=== PATIENT | female | born 1995 | race Caucasian/White ===

== ENCOUNTER 2020-09-16 18:24 | Emergency (ER) | payer BC, OTHER ==
[2020-09-16 18:55] VITALS: BP 140/83; PULSE 110
--- NOTE | 2020-09-16 20:31 | EDM.PDOC ---
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 Tate is a very pleasant 25-year-old woman who now presents to the ED with vaginal bleeding in the setting of an early . She states that her LMP was 08/05/2020, with 2 positive tests about 2 weeks ago, giving her a gestational age of 6 weeks 0 days today and an ISREAL of 12 05/12/2021. This is her first . She states that she has experienced pelvic cramps and vaginal bleeding on and off for the past 9 days, but that it got worse this past , 09/14/2020. She saw her [facility] Waste Handler at [facility] yesterday, 09/15/2020. She states that blood work was drawn, but that no other tests were performed. She states that she was told that her blood type is B- positive, and that her quantitative hCG was around 8000. She was discharged home with no prescriptions or even the recommendation to take vitamins. She is scheduled to undergo a pelvic ultrasound on 09/25/2020. He now presents the ED stating that she had a gush of bright red blood around 18:00 this evening. No tissue noticed. No associated pelvic cramps or pain. She denies having any recent urinary symptoms. Here in the ED, the patient is initially found to be modestly tachycardic at 110 bpm, otherwise, she is hemodynamically stable, afebrile, saturating 100% on room air. Other than the pelvic cramps and vaginal bleeding, the patient eats that she has had slight nausea, but no recent vomiting. Otherwise, she denies having a recent fever, chills, sore throat, ear pain, nasal or sinus congestion, cough, dyspnea, chest pain, palpitations, vomiting, constipation, diarrhea, abdominal pain, urinary symptoms, recent weight gain or weight loss, recent bloody bowel movements or black bowel movements, recent joint aches, headaches, or rashes. The patient's PCP and Hazard Waste Handler are in [place]. - Related Data Allergies Allergy/AdvReac Type Severity Reaction Status Date / Time No Known Allergies Allergy Verified 09/16/20 18:54 Home Meds: Home Meds Acetaminophen [Tylenol Extra Strength] 1,000 mg PO ASDIRECTED PRN 04/11/14 [History] Ondansetron [Zofran] 4 mg BUCCAL Q6H PRN #5 tab 04/26/15 [Rx] Past Medical History - Past Surgical History HEENT Surgical History: Reports: Oral Surgery (dental extractions) Social & Family History - Tobacco Use Tobacco Use Status *Q: Never Tobacco User Second Hand Smoke Exposure: No - Caffeine Use Caffeine Use: Reports: None - Alcohol Use Alcohol Use History: Yes Alcohol Use Frequency: Socially - Recreational Drug Use Recreational Drug Use: No - Living Situation & Occupation Living situation: Reports: Single, with Significant Other (Boyfriend) Occupation: Employed ([employer]) ED ROS GENERAL - Review of Systems Review Of Systems: Comprehensive ROS is negative, except as noted in HPI. ED EXAM - Physical Exam Exam: See Below Exam Limited By: No Limitations General Appearance: Alert, WD/WN, No Apparent Distress Eye Exam: Bilateral Eye: EOMI, Normal Inspection Ears: Normal External Exam, Hearing Grossly Normal Nose: Normal Inspection Throat/Mouth: Normal Inspection, Normal Voice, No Airway Compromise, Other (Surgical mask on) Head: Atraumatic, Normocephalic Neck: Normal Inspection, Full Range of Motion Respiratory/Chest: No Respiratory Distress, Lungs Clear, Normal Breath Sounds, No Accessory Muscle Use Cardiovascular: Normal Peripheral Pulses, Regular Rate, Rhythm, No Edema, No Gallop, No JVD, No Murmur, No Rub GI/Abdominal Exam: Normal Bowel Sounds, Soft, Non-Tender (including suprapubically), No Organomegaly, No Distention, No Abnormal Bruit, No Mass (Female) Exam: Normal External Exam, Other (Nulliparous os closed. Old- appearing dark red/brown blood by the cervix + a smattering withihn the vagina. No active bleeding. No tissue seen.). No: Products of Conception, Tissue Present in Cervix/Vagina Back Exam: Normal Inspection, Full Range of Motion. No: CVA Tenderness (L), CVA Tenderness (R) Extremities: Normal Inspection, Normal Range of Motion, No Pedal Edema, Normal Capillary Refill Neurological: Alert, Oriented, Normal Cognition, No Motor/Sensory Deficits Psychiatric: Normal Affect Skin Exam: Warm, Dry, Intact, Normal Color, No Rash Course - Vital Signs Last Recorded V/S: Last Vital Signs Temp 36.7 C 09/16/20 18:51 Pulse 110 H 09/16/20 18:51 Resp 20 09/16/20 18:51 BP 140/83 09/16/20 18:51 Pulse Ox 100 09/16/20 18:51 Orthostatic Blood Pressure [ 120/78 Standing] Orthostatic Blood Pressure [ 124/76 Supine] - Orders/Labs/Meds Orders: Active Orders 24 hr Category Date Time Status Orthostatic Vital Signs [RC] STAT Care 09/16/20 20:27 Active OB Transvaginal [US] Stat Exams 09/16/20 20:27 Taken Labs: Laboratory Tests 09/16/20 Range/Units 20:53 WBC 7.49 (3.98-10.04) K/mm3 RBC 4.21 (3.98-5.22) M/mm3 Hgb 12.3 D (11.2-15.7) gm/dl Hct 38.2 (34.1-44.9) % MCV 90.7 (79.4-94.8) fl MCH 29.2 (25.6-32.2) pg MCHC 32.2 (32.2-35.5) g/dl RDW Std Deviation 41.9 (36.4-46.3) fL Plt Count 292 (182-369) K/mm3 MPV 8.9 L (9.4-12.3) fl Neutrophils % (Manual) 64 H (40-60) % Band Neutrophils % 0 (0-10) % Lymphocytes % (Manual) 27 (20-40) % Atypical Lymphs % 0 % Monocytes % (Manual) 6 (2-10) % Eosinophils % (Manual) 3 (0.7-5.8) % Basophils % (Manual) 0 L (0.1-1.2) Platelet Estimate Adequate RBC Morph Comment Normal - Re-Assessments/Exams Free Text/Narrative Re-Assessment/Exam: 09/16/20 20:28 As above, the patient's LMP was 08/05/2020, with 2 positive home test about 2 weeks ago, giving her a gestational age of 6 weeks 0 days today by dates, with an ISREAL of 05/12/2021. She has been experiencing both vaginal bleeding and cramping on and off for the past 9 days, worse night, therefore she saw her OB in [place] yesterday where blood work, only, was performed. She states that her blood type is B-positive, and that her quantitative hCG was around 8000. She is scheduled for an ultrasound on 09/25/2020. She now presents the ED due to a gush of bright red blood this evening, without cramping. The patient's physical exam is grossly benign, including that of her pelvic exam, or her nulliparous os is closed. There is some old-appearing dark red/brown blood by the cervix and a smattering within the vagina, with no other abnormalities. Because the patient had a quantitative hCG and a blood type yesterday, there is no need to repeat those today, however, I have ordered a CBC and orthostatics to make sure that she has not lost a significant amount of blood. I have also ordered a transvaginal ultrasound to evaluate for an ectopic . 09/16/20 20:58 The patient is not orthostatic. 09/16/20 21:48 The patient's CBC is unremarkable. 09/16/20 22:34 Transvaginal ultrasound is read by Breana as: 1. There is no evidence of an ectopic . 2. Single early intrauterine is identified with ultrasound dates at approximately 5 weeks 6 days. No heart rate is noted on this examination, likely related to very early (heart rate is usually detected by 6 weeks). There is a question of a tiny 0.6 cm subchorionic hemorrhage which can be followed on subsequent examinations. Otherwise, no other acute abnormalities are noted. Follow-up ultrasound in 1 week is recommended, as well as beta HCG levels. 09/16/20 22:41 Test results discussed with the patient. As above, it appears that the bleeding that she has experienced is due to a small subchorionic bleed. I explained that at this stage, there is nothing that can be done about it other than observation. The only thing that I would recommend at this time is that she start on vitamins that, specifically, contain folic acid. She should then follow-up with her MOTOR PATROL OPERATOR in [place] this coming week. Departure - Departure Time of Disposition: 22:42 Disposition: Home, Self-Care 01 Condition: Good Clinical Impression: First trimester , Threatened - Discharge Information *PRESCRIPTION DRUG MONITORING PROGRAM REVIEWED*: Not Applicable *COPY OF PRESCRIPTION DRUG MONITORING REPORT IN PATIENT TONY: Not Applicable Referrals: PCP,Not In Area [Primary Care Provider] - Forms: ED Department Discharge Additional Instructions: You were seen in the emergency room for 9 days of intermittent vaginal bleeding with pelvic cramps, with increased bleeding tonight, in the setting of an early . Work-up in the ER included positional blood pressure checks, a CBC, and a transvaginal ultrasound. Your positional blood pressure checks were normal. You are not intravascularly depleted. Your CBC was normal; you are not anemic. The transvaginal ultrasound found a single intrauterine at 5 weeks 6 days. It is too early to detect a heartbeat. No ectopic was seen. We recommend that you begin taking vitamins that, specifically, contain folic acid. We recommend that you follow-up with your MOTOR PATROL OPERATOR in [place] this coming week, for repeat transvaginal ultrasound and quantitative hCG. If any other problems, please do not hesitate to return to the ER. Sepsis Event Note (ED) - Evaluation Sepsis Screening Result: No Definite Risk - Focused Exam Vital Signs: Vital Signs Temp Pulse Resp BP Pulse Ox 09/16/20 18:51 36.7 C 110 H 20 140/83 100 - My Orders Last 24 Hours: My Active Orders 09/16/20 20:27 Orthostatic Vital Signs [RC] STAT OB Transvaginal [US] Stat - Assessment/Plan Last 24 Hours: My Active Orders 09/16/20 20:27 Orthostatic Vital Signs [RC] STAT OB Transvaginal [US] Stat
== END 2020-09-16 23:10 | disposition home or self-care (01) ==
LOC: JD.ED 18:24
DX: O20.0 Threatened abortion (principal); Z3A.01 Less than 8 weeks gestation of pregnancy
CPT/HCPCS: 36415; 76817; 85007; 85027; 99282; 99284-25